=== PATIENT | female | born 1965 | race Caucasian/White ===

== ENCOUNTER 2021-09-29 13:50 | Outpatient (CLI) | payer BC | END 2021-09-29 13:51 | disposition home or self-care (01) | LOC: BICMAMMO 13:50 | PROVIDERS: ATTEND Specialist | DX: Z12.31 Encounter for screening mammogram for malignant neoplasm of breast (principal); M85.89 Other specified disorders of bone density and structure, multiple sites | CPT/HCPCS: 77063; 77067; 77080 ==

== ENCOUNTER 2025-01-30 09:06 | Outpatient (CLI) | payer BC ==
[2025-01-30 09:40] LABS: Estimated GFR - POC 73.0
== END 2025-01-30 09:07 | disposition home or self-care (01) ==
LOC: SCSMRI 09:06
PROVIDERS: ATTEND Specialist
DX: G43.909 Migraine, unspecified, not intractable, without status migrainosus (principal); R90.82 White matter disease, unspecified
CPT/HCPCS: 36415; 70553; 76376; 82565